=== PATIENT | female | born 1985 | race Asian ===

== ENCOUNTER 2018-10-09 17:12 | Emergency (ER) | payer OTHER ==
[~2018-10-09] VITALS: Ht 152.4 cm; Wt 54.9 kg
[2018-10-09 17:50] VITALS: Ht 152.4 cm; Wt 54.9 kg
[2018-10-09 21:29] VITALS: BP 99/58
== END 2018-10-09 21:29 | disposition home or self-care (01) ==
LOC: ED 17:12
DX: O20.0 Threatened abortion (principal)
CPT/HCPCS: 87491; 87591; Q0092